=== PATIENT | male | born 1940 | race Caucasian/White ===

== ENCOUNTER → 2016-08-27 | Outpatient (CLI) | payer OTHER ==
[~2016-08-27] MED LIST: ANTIVERT25 MG PO; ASPIR 8181 M1 PO; COLACE100 MG PO; GABAPENTIN100 MG PO; LIPITOR10 MG PO; LISINOPRIL10 MG PO; MOTRIN600 MG PO; PERCOCET 5/31 TABLET PO; PRILOSEC40 MG PO; SYNTHROID88 MCG PO; ZESTRIL2.5 MG PO
== END | disposition home or self-care (01) ==
LOC: CDC 10:49
DX: Z01.810 Encounter for preprocedural cardiovascular examination (principal); R00.1 Bradycardia, unspecified; K40.90 Unilateral inguinal hernia, without obstruction or gangrene, not specified as recurrent
CPT/HCPCS: 93000

== ENCOUNTER 2016-08-31 10:24 | Day surgery (SDC) | payer OTHER ==
[~2016-08-31] VITALS: Ht 172.7 cm; Wt 77.0 kg
[~2016-08-31 10:24] MED LIST changes: -COLACE100 MG PO; -MOTRIN600 MG PO; -PERCOCET 5/31 TABLET PO
[2016-08-31 11:21] VITALS: BP 127/79
[2016-08-31] MEDS ORDERED: ASPIR 8181 M1 PO (11:24)
[2016-08-31] MEDS ORDERED: PERCOCET 5/31 TABLET PO (13:42)
[2016-08-31] MEDS ORDERED: MOTRIN600 MG PO (13:42)
[2016-08-31] MEDS ORDERED: COLACE100 MG PO (13:42)
[2016-08-31 15:25] VITALS: BP 129/70
[2016-08-31 16:26] VITALS: BP 144/91
== END 2016-08-31 16:43 | disposition home or self-care (01) ==
LOC: SDC 10:24
PROC: 0YQ60ZZ Repair Left Inguinal Region, Open Approach (ICD-10-PCS; principal; 2016-08-31)
DX: K40.90 Unilateral inguinal hernia, without obstruction or gangrene, not specified as recurrent (principal); I10 Essential (primary) hypertension; E78.5 Hyperlipidemia, unspecified; K21.9 Gastro-esophageal reflux disease without esophagitis; E03.9 Hypothyroidism, unspecified; M47.812 Spondylosis without myelopathy or radiculopathy, cervical region; R73.09 Other abnormal glucose; K76.0 Fatty (change of) liver, not elsewhere classified; G62.9 Polyneuropathy, unspecified
CPT/HCPCS: C1781; J0690; J1100; J1170; J2250; J2405; J2765; J3010

== ENCOUNTER 2017-02-26 20:56 | Emergency (ER) | payer OTHER ==
[~2017-02-26] VITALS: Ht 172.7 cm; Wt 74.7 kg
[~2017-02-26 20:56] MED LIST changes: +COLACE100 MG PO; +MOTRIN600 MG PO; +PERCOCET 5/31 TABLET PO
[2017-02-26 21:40] LABS: ADD MIUA? YES; BILIRUBIN NEGATIVE; BLOOD LARGE; COLOR YELLOW ((YELLOW)); GLUCOSE (STRIP) NEGATIVE; KETONES NEGATIVE; LEUKOCYTES NEGATIVE; NITRITE NEGATIVE; PROTEIN (STRIP) 100; SPECIFIC GRAVITY 1.012 (1.000-1.030); UROBILINOGEN 0.2 MG/DL (0.2-1.0)
[2017-02-26 22:01] LABS: BACTERIA RARE /HPF; CALCIUM OXALATE CRYSTALS 1+ /HPF; EPITHELIAL CELLS RARE /HPF; MUCUS 4+ /LPF; RED BLOOD CELLS TNTC /HPF (0-5); UCUL ADDED? NO; WHITE BLOOD CELLS 0-5 /HPF (0-5)
[2017-02-26 22:07] LABS: HEMATOCRIT 43.8 % (38.0-50.0); MCH 29.5 PG (29.0-34.0); MCHC 33.6 G/DL (30.0-36.0); MCV 87.8 FL (86-99); MEAN PLAT.VOLUME 8.6 uM^3 (9.0-12.4); PLATELET COUNT 312 K/uL (156-360); RBC DIS.WIDTH-CV 12.2 % (11.8-14.6); RBC DIS.WIDTH-SD 39.2 % (39-53); RED BLOOD COUNT 4.99 M/uL (4.00-5.50); WHITE BLOOD COUNT 14.7 K/uL (4.1-10.2)
[2017-02-26 23:20] LABS: ANION GAP 13 MEQ/L (2-14); CHLORIDE 103 MEQ/L (99-109); POTASSIUM 4.4 MEQ/L (3.7-5.4); SAMPLE HEMOLYSIS CHECK 0; SAMPLE ICTERIC CHECK 0; SAMPLE LIPEMIA CHECK 0; SODIUM 138 MEQ/L (136-147)
[2017-02-26 23:26] LABS: GFR ESTIMATE (CALCULATED) > 59 mL/min/; GLUCOSE 114 mg/dL (70-99); UREA NITROGEN (BUN) 16 mg/dL (9-23)
[2017-02-26] MEDS ORDERED: FLOMAX0.4 MG PO (23:49)
[2017-02-26] MEDS ORDERED: PERCOCET 5/31 TABLET PO (23:49)
[2017-02-26] MEDS ORDERED: ZOFRAN ODT4 MG PO (23:51)
[2017-02-27 00:04] VITALS: BP 140/85
== END 2017-02-27 00:05 | disposition home or self-care (01) ==
LOC: EME 20:56
DX: N20.0 Calculus of kidney (principal); R10.9 Unspecified abdominal pain; I10 Essential (primary) hypertension; K21.9 Gastro-esophageal reflux disease without esophagitis; Z87.442 Personal history of urinary calculi; Z87.891 Personal history of nicotine dependence
CPT/HCPCS: 74176; 80048; 81003; 85027; 99281; 99283

== ENCOUNTER → 2017-07-01 | Outpatient (CLI) | payer OTHER ==
[~2017-07-01] MED LIST changes: +FLOMAX0.4 MG PO; +ZOFRAN ODT4 MG PO
== END | disposition home or self-care (01) ==
LOC: CDC 11:08
DX: Z01.810 Encounter for preprocedural cardiovascular examination (principal); R00.1 Bradycardia, unspecified
CPT/HCPCS: 93000